=== PATIENT | female | born 2000 | race Two or more races ===

== ENCOUNTER 2023-01-07 19:21 | Emergency (ER) | payer MEDICAID, OTHER ==
[~2023-01-07] VITALS: Ht 157.5 cm; Wt 51.9 kg
[2023-01-07 19:22] VITALS: BP 108/78
== END 2023-01-07 23:57 | disposition home or self-care (01) ==
LOC: ER 19:21
DX: S63.501A Unspecified sprain of right wrist, initial encounter (principal); J45.909 Unspecified asthma, uncomplicated; W18.39XA Other fall on same level, initial encounter; Y93.89 Activity, other specified; Y92.89 Other specified places as the place of occurrence of the external cause; Y99.8 Other external cause status
CPT/HCPCS: 29125; 73110